=== PATIENT | female | born 1940 | race Caucasian/White ===

== ENCOUNTER → 2016-07-16 | Outpatient (CLI) | payer MEDICARE, BC ==
[~2016-07-16] MED LIST: ASPIRIN 81M81 MG/TA2 PO; LEVOXYL0.075 MG PO; MIRALAX PA17 GM/Dose PO; PAXIL 10MG10 MG PO; PRILOSEC 20MG20 MG PO; PRINIVIL40 MG PO; TENORMIN 2525 MG/TAB PO; ZOCOR 10MG10 MG PO
== END ==
LOC: COL.VAS 13:07
DX: I08.1 Rheumatic disorders of both mitral and tricuspid valves (principal); I28.8 Other diseases of pulmonary vessels

== ENCOUNTER 2016-07-17 06:27 | Day surgery (SDC) | payer MEDICARE, BC ==
[~2016-07-17] VITALS: Ht 165.1 cm; Wt 62.1 kg
[2016-07-17 07:12] VITALS: BP 130/61; PULSE 64; TEMP 97.5
[2016-07-17] MEDS ORDERED: TENORMIN 2525 MG/TAB PO (07:47)
[2016-07-17] MEDS ORDERED: PAXIL 10MG10 MG PO (07:48)
[2016-07-17] MEDS ORDERED: ASPIRIN 81M81 MG/TA2 PO (07:50)
[2016-07-17] MEDS ORDERED: ZOCOR 10MG10 MG PO (07:50)
[2016-07-17] MEDS ORDERED: PRINIVIL40 MG PO (07:50)
[2016-07-17] MEDS ORDERED: LEVOXYL0.075 MG PO (07:51)
[2016-07-17] MEDS ORDERED: PRILOSEC 20MG20 MG PO (07:52)
[2016-07-17] MEDS ORDERED: MIRALAX PA17 GM/Dose PO (07:52)
[2016-07-17 10:03] VITALS: BP 134/49; PULSE 53
[2016-07-17 10:18] VITALS: BP 151/43; PULSE 48
[2016-07-17 10:33] VITALS: BP 154/58; PULSE 58
[2016-07-17 10:48] VITALS: BP 116/75; PULSE 51
[2016-07-17 11:03] VITALS: BP 149/58; PULSE 52
== END 2016-07-17 11:45 | disposition home or self-care (01) ==
LOC: SDCO 06:27
DX: K40.90 Unilateral inguinal hernia, without obstruction or gangrene, not specified as recurrent (principal); Z12.11 Encounter for screening for malignant neoplasm of colon; K57.90 Diverticulosis of intestine, part unspecified, without perforation or abscess without bleeding; K64.8 Other hemorrhoids; E78.5 Hyperlipidemia, unspecified; I10 Essential (primary) hypertension; E89.0 Postprocedural hypothyroidism; R73.9 Hyperglycemia, unspecified; F32.9 Major depressive disorder, single episode, unspecified; E05.00 Thyrotoxicosis with diffuse goiter without thyrotoxic crisis or storm
CPT/HCPCS: C1781; J0690; J2250; J2704; J3010; J7120

== ENCOUNTER 2017-04-28 07:53 | Outpatient (CLI) | payer MEDICARE, BC ==
[2017-04-28] VITALS (9 sets, daily range): BP systolic 91–153; BP diastolic 49–74; PULSE 47–60; TEMP 97.9–98.6
[~2017-04-28] VITALS: Ht 162.6 cm; Wt 61.0 kg
[2017-04-28 08:44] LABS: HEMATOCRIT 42.4 % (37.0-47.0); HEMOGLOBIN 13.4 g/dl (12.5-16.0); MEAN CELL VOLUME 95 fl (80.0-100.0); MEAN CORPUSCULAR HEMOGLOBIN 30 pg (27.0-31.0); MEAN CORPUSCULAR HGB CONC 32 g/dl (33.0-37.0); MEAN PLATELET VOLUME 10.5 fl (7.4-10.4); PLATELET COUNT 168 K/mm3 (130-400); RED BLOOD COUNT 4.45 M/mm3 (4.10-5.30); REDCELL DISTRIBUTION WIDTH-CV 13.4 % (11.5-14.5)
[2017-04-28 08:51] LABS: CALCIUM 10.3 mg/dL (8.4-10.2); CREATININE, serum 1.08 mg/dL (0.52-1.25); POTASSIUM 4.4 mmol/L (3.4-5.0)
[2017-04-28 09:02] LABS: INR 1.1 (0.8-3.0); PROTHROMBIN TIME 12.3 SECONDS (9.7-12.8)
== END 2017-04-28 11:28 | disposition home or self-care (01) ==
LOC: COL.RAD 07:53
PROVIDERS: Internal Medicine Cardiovascular Disease
DX: I08.0 Rheumatic disorders of both mitral and aortic valves (principal); I10 Essential (primary) hypertension; E78.2 Mixed hyperlipidemia
CPT/HCPCS: G9654; J2704; J7120

== ENCOUNTER → 2020-10-16 | Outpatient (CLI) | payer MEDICARE, BC ==
[2020-10-16 12:59] LABS: ALBUMIN 4.2 gm/dL (3.5-5.0); BILIRUBIN,TOTAL 0.5 mg/dL (0.0-1.0); CALCIUM 9.9 mg/dL (8.4-10.2); CHOLESTEROL RISK RATIO 2.3; CREATININE, serum 0.89 (0.52-1.25); POTASSIUM 4.3 mmol/L (3.4-5.0); TOTAL PROTEIN 6.9 gm/dL (6.4-8.2)
[2020-10-16 13:24] LABS: THYROID STIMULATING HORMONE 4.72 uIU/mL (0.465-4.680)
== END ==
LOC: ZCOL.LAB 12:06
PROVIDERS: Physician Assistant Medical
DX: Z00.00 Encounter for general adult medical examination without abnormal findings (principal); E03.9 Hypothyroidism, unspecified; E78.5 Hyperlipidemia, unspecified; R73.9 Hyperglycemia, unspecified